=== PATIENT | male | born 1950 | race Caucasian/White ===

== ENCOUNTER 2019-10-28 16:47 | Emergency (ER) | payer MEDICARE, OTHER ==
[2019-10-28] MEDS ORDERED: Aspirin 81 MG Tab.Chew PO ONE (17:06)
[2019-10-28] MEDS ORDERED: Sodium Chloride 0.9% 10 ML Syringe FLUSH PRN ×2 (17:06→18:11)
--- NOTE | 2019-10-28 17:11 | EDM.PDOC ---
ED HPI GENERAL MEDICAL PROBLEM - General Chief Complaint: Chest Pain Stated Complaint: CHEST PAIN Time Seen by Provider: 10/28/19 16:57 Source of Information: Reports: Patient History Limitations: Reports: No Limitations - History of Present Illness INITIAL COMMENTS - FREE TEXT/NARRATIVE: Patient is a 69-year-old male who presents with complaints of acute onset of chest pain and shortness of breath that started approximately 1/2 hours prior to coming to the ER. Patient states he was working on his water heater which required him to walk up and down stairs when the symptoms began. He described the pain as a sharp pain that radiated across his entire chest and up into his right neck. He did have significant shortness of breath and lightheadedness with the onset of symptoms. He was not diaphoretic. Patient took 3 baby aspirin at home prior to coming to the ER. He denies any history of CO or other heart conditions. States he actually has low blood pressure most times. No history of COPD or other lung pathology. He has had a DVT and PEs in the past which he states was approximately 10 years ago. Denies any current pain or edema to his lower extremities. States that the pain is significantly better now from what it originally occurred, however he does still feel somewhat short of breath. He denies any recent illnesses. Chest Pain Score (Numeric/FACES): 8 - Related Data Allergies Allergy/AdvReac Type Severity Reaction Status Date / Time lactose Allergy Cannot Verified 10/28/19 16:50 Remember latex Allergy Cannot Verified 10/28/19 16:50 Remember shellfish derived Allergy Cannot Verified 10/28/19 17:54 Remember Home Meds: Home Meds Enrique-Gel. 1 tab PO DAILY 10/28/19 [History] Latanoprost [Xalatan] 1 drop EYEBOTH ASDIRECTED 10/28/19 [History] Methyl B Complex. 1 tab PO DAILY 10/28/19 [History] Nebo Katharina-Dha 720. 1 tab PO DAILY 10/28/19 [History] Spore Probio. 1 tab PO DAILY 10/28/19 [History] Thyroid,Pork [[place] Thyroid] 1 tab PO DAILY 10/28/19 [History] Timolol Maleate [Timoptic 0.5% Ophth Soln] 1 drop EYEBOTH ASDIRECTED 10/28/19 [ History] Venlafaxine [Effexor XR] 75 mg PO DAILY 10/28/19 [History] Venlafaxine [Effexor XR] 150 mg PO DAILY 10/28/19 [History] clonazePAM [Clonazepam] 1 mg PO BEDTIME 10/28/19 [History] ED ROS GENERAL - Review of Systems Review Of Systems: Comprehensive ROS is negative, except as noted in HPI. ED EXAM, GENERAL - Physical Exam Exam: See Below Exam Limited By: No Limitations General Appearance: Alert, WD/WN, No Apparent Distress Respiratory/Chest: No Respiratory Distress, Lungs Clear, Normal Breath Sounds, No Accessory Muscle Use, Chest Non-Tender Cardiovascular: Normal Peripheral Pulses, Regular Rate, Rhythm, No Edema, No Gallop, No JVD, No Murmur, No Rub GI/Abdominal: Normal Bowel Sounds, Soft, Non-Tender, No Organomegaly, No Distention, No Abnormal Bruit, No Mass Extremities: Normal Inspection, Normal Range of Motion, Non-Tender, No Pedal Edema, Normal Capillary Refill Neurological: Alert, Oriented, CN II-XII Intact, Normal Cognition, Normal Gait, Normal Reflexes, No Motor/Sensory Deficits Psychiatric: Normal Affect, Normal Mood Skin Exam: Warm, Dry, Intact, Normal Color, No Rash EKG INTERPRETATION EKG Date: 10/28/19 Time: 16:51 Rhythm: NSR Rate (Beats/Min): 93 [place]: Normal P-Wave: Present QRS: Normal ST-T: Normal QT: Normal EKG Interpretation Comments: EKG interpreted by Dr. Nadege MD. Course - Vital Signs Last Recorded V/S: Last Vital Signs Temp 96.8 F L 10/28/19 16:51 Pulse 94 10/28/19 16:51 Resp 26 H 10/28/19 16:51 BP 126/87 10/28/19 16:51 Pulse Ox 95 10/28/19 17:18 - Orders/Labs/Meds Orders: Active Orders 24 hr Category Date Time Status Cardiac Monitoring [RC] . DIRECTED Care 10/28/19 17:12 Active EKG Documentation Completion [RC] STAT Care 10/28/19 17:05 Active Oxygen Therapy [RC] PRN Care 10/28/19 17:12 Active Peripheral IV Care [RC] . DIRECTED Care 10/28/19 17:06 Active Heparin Sodium/D5W [Heparin 25,000 Units in D5W 500 ML] Med 10/28/19 19:00 Active 25,000 units in 500 ml IV TITRATE Sodium Chloride 0.9% [Normal Saline] 1,000 ml Med 10/28/19 18:00 Active IV ASDIRECTED Sodium Chloride 0.9% [Normal Saline] 100 ml Med 10/28/19 18:15 Active IV ASDIRECTED Sodium Chloride 0.9% [Saline Flush] Med 10/28/19 17:06 Active 10 ml FLUSH ASDIRECTED PRN Sodium Chloride 0.9% [Saline Flush] Med 10/28/19 18:11 Active 10 ml FLUSH ONETIME PRN Peripheral IV Insertion Adult [OM.PC] Stat Oth 10/28/19 17:05 Ordered Medication Orders Sodium Chloride (Normal Saline) 1,000 mls @ 150 mls/hr IV ASDIRECTED GIOVANI Last Admin: 10/28/19 17:59 Dose: 150 mls/hr Sodium Chloride (Normal Saline) 100 mls @ 75 mls/hr IV ASDIRECTED GIOVANI Last Admin: 10/28/19 18:28 Dose: 75 mls/hr Heparin Sodium/Dextrose (Heparin 25,000 Units In D5w 500 Ml) 25,000 units in 500 mls @ 31.026 mls/hr IV TITRATE GIOVANI; Protocol Last Admin: 10/28/19 18:57 Dose: 18 units/kg/hr, 31.026 mls/hr Sodium Chloride (Saline Flush) 10 ml FLUSH ASDIRECTED PRN PRN Reason: Keep Vein Open Last Admin: 10/28/19 17:18 Dose: 10 ml Sodium Chloride (Saline Flush) 10 ml FLUSH ONETIME PRN PRN Reason: IV FLUSH Last Admin: 10/28/19 18:29 Dose: 10 ml Labs: Laboratory Tests 10/28/19 10/28/19 10/28/19 Range/Units 16:58 16:58 16:58 WBC 6.60 (4.23-9.07) K/mm3 RBC 4.70 (4.63-6.08) M/mm3 Hgb 15.2 (13.7-17.5) gm/dl Hct 45.0 (40.1-51.0) % MCV 95.7 H D (79.0-92.2) fl MCH 32.3 H (25.7-32.2) pg MCHC 33.8 (32.2-35.5) g/dl RDW Std Deviation 46.2 H (35.1-43.9) fL Plt Count 144 L (163-337) K/mm3 MPV 9.5 (9.4-12.3) fl Neut % (Auto) 59.7 (34.0-67.9) % Lymph % (Auto) 24.8 (21.8-53.1) % [place] % (Auto) 12.3 H (5.3-12.2) % Eos % (Auto) 2.7 (0.8-7.0) Baso % (Auto) 0.2 (0.1-1.2) % Neut # (Auto) 3.94 (1.78-5.38) K/mm3 Lymph # (Auto) 1.64 (1.32-3.57) K/mm3 [place] # (Auto) 0.81 (0.30-0.82) K/mm3 Eos # (Auto) 0.18 (0.04-0.54) K/mm3 Baso # (Auto) 0.01 (0.01-0.08) K/mm3 D-Dimer, Quantitative 10.01 H (0.19-0.50) mg/L Sodium 139 (136-145) mEq/L Potassium 4.0 (3.5-5.1) mEq/L Chloride 104 (98-107) mEq/L Carbon Dioxide 26 (21-32) mEq/L Anion Gap 13.0 (5-15) BUN 17 (7-18) mg/dL Creatinine 1.3 (0.7-1.3) mg/dL Est Cr Clr Drug Dosing 52.62 mL/min Estimated GFR (MDRD) 55 (>60) mL/min BUN/Creatinine Ratio 13.1 L (14-18) Glucose 89 (80-115) mg/dL Calcium 9.9 (8.5-10.1) mg/dL Magnesium (1.8-2.4) mg/dl Total Bilirubin 0.5 (0.2-1.0) mg/dL AST 31 (15-37) U/L ALT 44 (16-63) U/L Alkaline Phosphatase 82 (46-116) U/L Troponin I 0.081 H* (0.00-0.056) ng/mL Total Protein 7.3 (6.4-8.2) g/dl Albumin 3.6 (3.4-5.0) g/dl Globulin 3.7 gm/dL Albumin/Globulin Ratio 1.0 (1-2) 10/28/19 Range/Units 16:58 WBC (4.23-9.07) K/mm3 RBC (4.63-6.08) M/mm3 Hgb (13.7-17.5) gm/dl Hct (40.1-51.0) % MCV (79.0-92.2) fl MCH (25.7-32.2) pg MCHC (32.2-35.5) g/dl RDW Std Deviation (35.1-43.9) fL Plt Count (163-337) K/mm3 MPV (9.4-12.3) fl Neut % (Auto) (34.0-67.9) % Lymph % (Auto) (21.8-53.1) % [place] % (Auto) (5.3-12.2) % Eos % (Auto) (0.8-7.0) Baso % (Auto) (0.1-1.2) % Neut # (Auto) (1.78-5.38) K/mm3 Lymph # (Auto) (1.32-3.57) K/mm3 [place] # (Auto) (0.30-0.82) K/mm3 Eos # (Auto) (0.04-0.54) K/mm3 Baso # (Auto) (0.01-0.08) K/mm3 D-Dimer, Quantitative (0.19-0.50) mg/L Sodium (136-145) mEq/L Potassium (3.5-5.1) mEq/L Chloride (98-107) mEq/L Carbon Dioxide (21-32) mEq/L Anion Gap (5-15) BUN (7-18) mg/dL Creatinine (0.7-1.3) mg/dL Est Cr Clr Drug Dosing mL/min Estimated GFR (MDRD) (>60) mL/min BUN/Creatinine Ratio (14-18) Glucose (80-115) mg/dL Calcium (8.5-10.1) mg/dL Magnesium 2.0 (1.8-2.4) mg/dl Total Bilirubin (0.2-1.0) mg/dL AST (15-37) U/L ALT (16-63) U/L Alkaline Phosphatase (46-116) U/L Troponin I (0.00-0.056) ng/mL Total Protein (6.4-8.2) g/dl Albumin (3.4-5.0) g/dl Globulin gm/dL Albumin/Globulin Ratio (1-2) Meds: Medications Generic Name Dose Route Start Last Admin Trade Name Nguyễnq PRN Reason Stop Dose Admin Sodium Chloride 1,000 mls @ 150 mls/hr 10/28/19 18:00 10/28/19 17:59 Normal Saline IV 150 mls/hr ASDIRECTED GIOVANI Administration Sodium Chloride 100 mls @ 75 mls/hr 10/28/19 18:15 10/28/19 18:28 Normal Saline IV 75 mls/hr ASDIRECTED GIOVANI Administration Heparin Sodium/Dextrose 25,000 units in 500 mls @ 31.026 mls/hr 10/28/19 19: 00 10/28/19 18:57 Heparin 25,000 Units In D5w 500 Ml IV 18 units/kg/hr TITRATE GIOVANI 31.026 mls/hr Administration Protocol 18 UNITS/KG/HR Sodium Chloride 10 ml 10/28/19 17:06 10/28/19 17:18 Saline Flush FLUSH 10 ml ASDIRECTED PRN Administration Keep Vein Open Sodium Chloride 10 ml 10/28/19 18:11 10/28/19 18:29 Saline Flush FLUSH 10 ml ONETIME PRN Administration IV FLUSH Discontinued Medications Generic Name Dose Route Start Last Admin Trade Name Bry PRN Reason Stop Dose Admin Aspirin 81 mg 10/28/19 17:06 10/28/19 17:17 Aspirin PO 10/28/19 17:07 81 mg ONETIME ONE Administration Heparin Sodium (Porcine) 5,000 units 10/28/19 18:49 10/28/19 18:57 Heparin Sodium IVPUSH 10/28/19 18:50 5,000 units .BOLUS ONE Administration Iopamidol 100 ml 10/28/19 18:11 10/28/19 18:28 Isovue-370 (76%) IVPUSH 10/28/19 18:12 100 ml ONETIME ONE Administration - Re-Assessments/Exams Free Text/Narrative Re-Assessment/Exam: 10/28/19 17:58 EKG was negative for any acute changes. Troponin is mildly elevated at 0.081, d -dimer is significantly elevated at 10.01. Patient's SPO2 decreased to 87% on room air. He is currently on 2 L of oxygen via nasal cannula satting approximately 96%. Patient does have a history of DVT with PEs approximate 10 years ago. I have ordered a CT Angio of the chest. Patient states that he has a shellfish allergy, however he has never had a reaction to CT contrast with his past CTs. 10/28/19 19:22 CT angios shows extensive pulmonary embolism. "There is a saddle thrombus being noted within the right and left main pulmonary arteries. Saddle thrombus also noted extending into the proximal segmental upper and lower lobe pulmonary arteries on both sides. Additional clot is seen within the more distal segmental branches and subsegmental branches of both lower lobes. " Heparin bolus of 5000 units is well as a heparin drip at 18 units/kg/h has been ordered. Patient has been hemodynamically stable throughout his stay in the ER , however, based on the extent of these emboli, I feel is in the patient's best interest to be in a location where interventional radiology is available if his condition should deteriorate. Called [facility] and spoke with hospitalist Dr. Kinney. She accepted patient for transfer with a direct admission. She did request that if the patient's condition should deteriorate that he be sent through the emergency department. Patient will be transported by ground ambulance. Departure - Departure Time of Disposition: 19:24 Disposition: DC/Tfer to Acute Hospital 02 Reason for Transfer *Q: Other (Interventional radiology) Condition: Fair Clinical Impression: Acute pulmonary embolism Qualifiers: Pulmonary embolism type: saddle Acute cor pulmonale presence: without acute cor pulmonale Qualified Code(s): I26.92 - Saddle embolus of pulmonary artery without acute cor pulmonale Referrals: Darrin Iniguez MD [Primary Care Provider] - Forms: ED Department Discharge Sepsis Event Note - Evaluation Sepsis Screening Result: No Definite Risk - Focused Exam Vital Signs: Vital Signs Temp Pulse Resp BP Pulse Ox Pulse Ox 10/28/19 17:18 95 10/28/19 16:51 96.8 F L 94 26 H 126/87 90 L Date Exam was Performed: 10/28/19 Time Exam was Performed: 19:41 - My Orders Last 24 Hours: My Active Orders 10/28/19 17:05 EKG Documentation Completion [RC] STAT Peripheral IV Insertion Adult [OM.PC] Stat 10/28/19 17:06 Peripheral IV Care [RC] . DIRECTED Sodium Chloride 0.9% [Saline Flush] 10 ml FLUSH ASDIRECTED PRN 10/28/19 17:12 Cardiac Monitoring [RC] . DIRECTED Oxygen Therapy [RC] PRN 10/28/19 18:00 Sodium Chloride 0.9% [Normal Saline] 1,000 ml IV ASDIRECTED 10/28/19 18:11 Sodium Chloride 0.9% [Saline Flush] 10 ml FLUSH ONETIME PRN 10/28/19 18:15 Sodium Chloride 0.9% [Normal Saline] 100 ml IV ASDIRECTED 10/28/19 19:00 Heparin Sodium/D5W [Heparin 25,000 Units in D5W 500 ML] 25,000 units in 500 ml IV TITRATE - Assessment/Plan Last 24 Hours: My Active Orders 10/28/19 17:05 EKG Documentation Completion [RC] STAT Peripheral IV Insertion Adult [OM.PC] Stat 10/28/19 17:06 Peripheral IV Care [RC] . DIRECTED Sodium Chloride 0.9% [Saline Flush] 10 ml FLUSH ASDIRECTED PRN 10/28/19 17:12 Cardiac Monitoring [RC] . DIRECTED Oxygen Therapy [RC] PRN 10/28/19 18:00 Sodium Chloride 0.9% [Normal Saline] 1,000 ml IV ASDIRECTED 10/28/19 18:11 Sodium Chloride 0.9% [Saline Flush] 10 ml FLUSH ONETIME PRN 10/28/19 18:15 Sodium Chloride 0.9% [Normal Saline] 100 ml IV ASDIRECTED 10/28/19 19:00 Heparin Sodium/D5W [Heparin 25,000 Units in D5W 500 ML] 25,000 units in 500 ml IV TITRATE
--- NOTE | 2019-10-28 17:49 | CR ---
Chest: 2 views of the chest were obtained. Comparison: No prior chest imaging. Heart size and mediastinum are normal. Lungs are clear. Bony structures shows degenerative endplate spurring within the mid to lower thoracic spine. Impression: 1. Findings as noted above. Nothing acute is appreciated. Diagnostic code #2 Study was dictated in [place] Standard Time
[2019-10-28] MEDS ORDERED: Sodium Chloride 0.9% 1,000 ML IV SCH (18:00)
[2019-10-28] MEDS ORDERED: Iopamidol 755 Mg/ML 100 ML Bottle IVPUSH ONE (18:11)
[2019-10-28] MEDS ORDERED: Sodium Chloride 0.9% 100 ML IV SCH (18:15)
--- NOTE | 2019-10-28 18:48 | CT ---
CT chest Technique: Multiple axial sections through the chest were obtained. Intravenous contrast was utilized. Study has been performed as a pulmonary angiogram protocol. Findings: Extensive pulmonary embolism is seen. There is saddle thrombus being noted within the right and left main pulmonary arteries. Saddle thrombus also noted extending into the proximal segmental upper and lower lobe pulmonary arteries on both sides. Additional clot is seen within more distal segmental branches and subsegmental branches of both lower lobes. Aorta shows no aneurysm. No mediastinal adenopathy is seen. No axillary adenopathy is noted. Cyst noted within both kidneys. Largest cyst measures 7.1 cm. Lungs show no acute parenchymal change. No pleural effusions are seen. Scattered degenerative endplate spurring is noted within the spine. No acute osseous finding is appreciated. Impression: 1. Extensive pulmonary embolism. 2. No findings of right ventricular dysfunction is seen at this time. Diagnostic code #5 Study was dictated in [place] Standard Time
[2019-10-28] MEDS ORDERED: Heparin Sodium 5,000 Units/ML Vial IVPUSH ONE (18:49)
[2019-10-28] MEDS ORDERED: Heparin Sodium/D5W 25,000 UNITS/500 ML BAG IV SCH (19:00)
== END 2019-10-28 19:55 ==
LOC: JD.ED 16:47
DX: I26.92 Saddle embolus of pulmonary artery without acute cor pulmonale (principal); Z79.899 Other long term (current) drug therapy; Z91.011 Allergy to milk products; Z91.040 Latex allergy status; Z91.013 Allergy to seafood
CPT/HCPCS: 36415; 71046; 71275; 80053; 83735; 84484; 85025; 85379; 93005; 96361; 96365; 99285; A9270; J1644; J7030; J7050; Q9967; 93010; 99284

== ENCOUNTER 2025-03-14 09:32 | Emergency (ER) | payer MEDICARE ==
[2025-03-14] MEDS ORDERED: Naloxone 0.4 MG/ML SDV IVPUSH PRN (10:33)
[2025-03-14] MEDS: Ondansetron 4 MG/2 ML SDV IVPUSH ONE (10:40)
[2025-03-14 10:41] LABS: BASOPHILS ABSOLUTE AUTO 0.0 K/mm3 (0.0-0.2); BASOPHILS PERCENT AUTO 0.6 % (0.0-1.0); EOSINOPHILS ABSOLUTE AUTO 0.1 K/mm3 (0.0-0.4); EOSINOPHILS PERCENT AUTO 2.7 % (0.0-6.0); IMMATURE GRAN ABSOLUTE AUTO 0.02 K/mm3 (0.00-0.05); IMMATURE GRAN PERCENT AUTO 0.4 % (0.0-0.4); LYMPHOCYTES ABSOLUTE AUTO 1.6 K/mm3 (1.0-4.8); LYMPHOCYTES PERCENT AUTO 30.7 % (24.0-44.0); MEAN PLATELET VOLUME 9.2 fl (9.4-12.4); MONOCYTES ABSOLUTE AUTO 0.7 K/mm3 (0.0-0.8); MONOCYTES PERCENT AUTO 12.4 % (0.0-8.0); NEUTROPHILS ABSOLUTE AUTO 2.8 K/mm3 (1.8-7.7); NEUTROPHILS PERCENT AUTO 53.2 % (41.0-71.0); NRBC ABSOLUTE 0.00 (0.00-0.02); NRBC PERCENT 0.0 % (0.0-0.2); PLATELET COUNT,PLT 131 K/mm3 (150-400); RED BLOOD CELL COUNT 4.49 M/mm3 (4.52-5.90); WHITE BLOOD CELL COUNT,WBC 5.25 K/mm3 (3.9-11.3)
[2025-03-14 11:05] LABS: LACTIC ACID < 0.3 mmol/L (0.4-2.0)
[2025-03-14 11:16] LABS: A/G RATIO 1.0 (1-2); ALANINE AMINOTRANSFERASE,ALT 49.0 U/L (16-63); ASPARTATE AMNIOTRANSFERASE,AST 30.0 U/L (15-37); BILIRUBIN TOTAL 0.4 mg/dL (0.2-1.0); BLOOD UREA NITROGEN,BUN 17.0 mg/dL (7-18); CARBON DIOXIDE,CO2 24.0 mEq/L (21-32); CHLORIDE,CL 104.0 mEq/L (98-107); CREATININE 1.2 mg/dL (0.7-1.3); EST CRCL DRUG DOSING (CG) 60.18 mL/min; ESTIMATED GFR 64.0 mL/min (>60); GLUCOSE RANDOM 151.0 mg/dL (70-99); POTASSIUM,K 3.6 mEq/L (3.5-5.1); PROTEIN TOTAL,TP 6.3 g/dl (6.4-8.2); SODIUM,NA 139.0 mEq/L (136-145); TROPONIN I HIGH SENSITIVITY 5.0 pg/mL (<=76)
[2025-03-14 12:47] LABS: APPEARANCE,URINE CLEAR (Clear); GLUCOSE,URINE NEGATIVE (Negative); OCCULT BLOOD,URINE NEGATIVE (Negative)
[2025-03-14] MEDS: Iopamidol 612 MG/ML 100 ML Bottle IVPUSH ONE (12:59)
[2025-03-14] MEDS: Sodium Chloride 0.9% 10 ML Syringe FLUSH PRN (12:59)
== END 2025-03-14 15:13 | disposition home or self-care (01) ==
LOC: JD.ED 09:32
DX: K80.20 Calculus of gallbladder without cholecystitis without obstruction (principal); Z91.011 Allergy to milk products; Z91.040 Latex allergy status; Z91.013 Allergy to seafood; Z79.899 Other long term (current) drug therapy
CPT/HCPCS: 36415; 74177; 76705; 80053; 81003; 83605; 83690; 84484; 85025; 96361; 96374; 96375; 99284; J2270; J2405; J7030; Q9967

== ENCOUNTER 2025-03-20 09:32 | Day surgery (SDC) | payer MEDICARE ==
[~2025-03-20 09:32] MED LIST: Dexamethasone 4 MG/ML 5 ML MDV ONE; Esmolol 100 MG/10 ML SDV ONE; Midazolam 1 MG/ML 2 ML SDV ONE; Ondansetron 4 MG/2 ML SDV IVPUSH PRN; Sodium Chloride 0.9% 10 ML Syringe FLUSH PRN; Sodium Chloride 0.9% 10 ML Syringe FLUSH SCH; fentaNYL 250 MCG/5 ML SDV ONE; propofoL 500 MG/50 ML 50 ML ONE
[2025-03-20] MEDS ORDERED: ePHEDrine 50 MG/ML SDV ONE (10:14)
[2025-03-20] MEDS: Lactated Ringers 1,000 ML IV SCH (10:15)
[2025-03-20] MEDS ORDERED: EPINEPHrine 1 MG/ML SDV ONE (10:36)
[2025-03-20] MEDS ORDERED: Lactated Ringers 1,000 ML ONE (10:57)
[2025-03-20] MEDS ORDERED: Propofol 200 MG/20 ML SDV ONE (11:00)
[2025-03-20] MEDS: Bupivacaine 0.5%/EPINEPHrine 1:200,000 30 ML SDV ONE (11:21)
[2025-03-20] MEDS: fentaNYL 100 MCG/2 ML SDV IVPUSH PRN (13:03)
[2025-03-20] MEDS: Ketorolac 15 MG/ML SDV IVPUSH ONE (14:55)
== END 2025-03-20 15:14 | disposition home or self-care (01) ==
LOC: JD.SDS 09:32
PROVIDERS: ATTEND Surgery
DX: K82.4 Cholesterolosis of gallbladder (principal); K65.9 Peritonitis, unspecified; F41.9 Anxiety disorder, unspecified; N18.30 Chronic kidney disease, stage 3 unspecified; Z91.013 Allergy to seafood; Z88.8 Allergy status to other drugs, medicaments and biological substances; Z91.040 Latex allergy status; Z79.899 Other long term (current) drug therapy
CPT/HCPCS: 47562; 88304; 88305; 93005; A9270; J0171; J0665; J0690; J1100; J1805; J1885; J2003; J2250; J2704; J3010; J7120; 93010; J1171; J3490

== ENCOUNTER 2025-04-19 07:07 | Day surgery (SDC) | payer MEDICARE ==
[~2025-04-19 07:07] MED LIST changes: -Dexamethasone 4 MG/ML 5 ML MDV ONE; -Esmolol 100 MG/10 ML SDV ONE; -Midazolam 1 MG/ML 2 ML SDV ONE; -Ondansetron 4 MG/2 ML SDV IVPUSH PRN; -fentaNYL 250 MCG/5 ML SDV ONE; -propofoL 500 MG/50 ML 50 ML ONE
[2025-04-19] MEDS: Lactated Ringers 1,000 ML IV SCH (07:40)
[2025-04-19] MEDS ORDERED: propofoL 500 MG/50 ML 50 ML ONE (07:55)
[2025-04-19] MEDS ORDERED: Lidocaine 1% 4 ML ONE (07:56)
== END 2025-04-19 09:50 | disposition home or self-care (01) ==
LOC: JD.SDS 07:07
PROVIDERS: ATTEND Surgery
DX: K66.0 Peritoneal adhesions (postprocedural) (postinfection) (principal); Z90.49 Acquired absence of other specified parts of digestive tract; Z91.013 Allergy to seafood; Z88.8 Allergy status to other drugs, medicaments and biological substances; Z91.040 Latex allergy status; Z91.011 Allergy to milk products; E11.22 Type 2 diabetes mellitus with diabetic chronic kidney disease; N18.30 Chronic kidney disease, stage 3 unspecified; F41.9 Anxiety disorder, unspecified; Z79.01 Long term (current) use of anticoagulants; Z79.899 Other long term (current) drug therapy
CPT/HCPCS: 45378; J2003; J2704; J7120